=== PATIENT | female | born 2000 | race Caucasian/White ===

== ENCOUNTER 2019-05-09 21:07 | Inpatient (IN) ==
[2019-05-09] MEDS ORDERED: G.I. COCKTAIL PO ONE (21:31)
[2019-05-09 21:36] LABS: URINE SOURCE CLEAN CATCH
[2019-05-09 21:42] LABS: BASO# 0.03 X1000 (0.0-0.2); BASO% 0.4 % (0.0-0.8); BILIRUBIN URINE NEGATIVE (NEGATIVE); BLOOD URINE NEGATIVE (NEGATIVE); COLOR YELLOW; EOS% 1.4 % (0.0-10.0); GLUCOSE URINE NEGATIVE (NEGATIVE); HEMATOCRIT 41.4 % (37.0-47.0); HEMOGLOBIN 13.3 g/dL (12.0-16.0); IMM GRAN# 0.01 X1000 (0.0-0.04); IMM GRAN% 0.1 % (0.0-0.5); KETONE URINE NEGATIVE (NEGATIVE); LEUKOCYTES URINE NEGATIVE (NEGATIVE); LYMPH# 2.28 X1000 (1.2-3.4); LYMPH% 31.3 % (20.5-51.1); MCH 27.3 PG (27-31); MCHC 32.1 g/dL (33-37); MCV 84.8 FL (81-99); MONO# 0.71 X1000 (0.11-0.59); MONO% 9.8 % (1.7-9.3); MPV 9.4 FL (7.4-10.4); NEUT# 4.15 X1000 (1.4-6.5); NITRITE URINE NEGATIVE (NEGATIVE); PLT 432 X1000 (130-400); PROTEIN URINE TRACE mg/dL (NEGATIVE); RBC 4.88 XMIL (4.2-5.4); RDW 13.7 % (11.5-14.5); SP GRAVITY URINE 1.024; TURBIDITY URINE HAZY (CLEAR); UROBILINOGEN URINE NORMAL (NORMAL); WBC 7.28 X1000 (4.8-10.8)
[2019-05-09 21:54] LABS: UR EPITHELIAL CELLS >10 /HPF (<10); URINE BACTERIA 2+ /HPF; URINE RBC <10 /HPF (<10); URINE WBC <10 /HPF (<10); URINE YEAST NONE SEEN
[2019-05-09 21:55] LABS: URINE CASTS NONE SEEN; URINE CRYSTALS NONE SEEN
[2019-05-09 22:05] LABS: AGAP 14; ALBUMIN 4.5 g/dL (3.5-5.0); ALKALINE PHOSPHATASE 178 U/L (32-104); BUN 11 mg/dL (8-22); CALCIUM 9.2 mg/dL (8.8-10.2); CHLORIDE 102 mmol/L (98-107); COSMO 277; CREATININE 0.7 mg/dL (0.5-0.9); ESTIMATED GFR > 60; GLUCOSE 100 mg/dL (70-104); GOT 307 U/L (10-30); GPT 485 U/L (10-36); LIPASE 1272 U/L (13-60); POTASSIUM 3.4 mmol/L (3.5-5.1); SODIUM 139 mmol/L (136-145); TCO2 22 mmol/L (25-35); TOTAL PROTEIN 8.6 g/dL (6.3-8.3)
--- NOTE | 2019-05-09 22:09 | Diag Imaging Result Doc PS360 ---
EXAM: ABDOMEN FLAT/UPRIGHT HISTORY: abd pain TECHNIQUE: Two views COMPARISON: None. FINDINGS: No free air beneath the diaphragm. The liver is mildly prominent. No bowel obstruction. No foreign body. No abnormal calcifications. IMPRESSION: Mildly prominent liver Electronically signed by Ryan Douglass 05/09/2019 10:07 PM
[2019-05-09] MEDS ORDERED: ZOFRAN IV ONE (23:35)
[2019-05-09] MEDS ORDERED: MORPHINE IV ONE (23:35)
[2019-05-09] MEDS ORDERED: NS 1,000 ML IV ONE (23:35)
--- NOTE | 2019-05-09 23:39 | PROVIDER DOCUMENTATION ---
This chart was entered by Juanis Cohen Scribe, acting as scribe for Ashley Ortiz CRNP. HPI-General Adult - General Chief Complaint: Abdominal Pain Stated Complaint: BACK/STOMACH PAIN Time Seen by Provider: 05/09/19 21:18 Source: patient Allergies/Adverse Reactions: Patient Allergies Allergy/AdvReac Type Severity Reaction Status Date / Time No Known Allergies Allergy Verified 05/09/19 21:33 Home Medications: Home Medication List Medication Instructions Recorded Confirmed Last Taken Type Sertraline HCl 50 mg PO DAILY 05/09/19 05/09/19 Unknown History - History of Present Illness -Gen Adult Nature of Presenting Problems: pt is a 18 yr old female presenting with 2 day complaint of epigastric pain radiating to back, nausea and vomiting, pt denies chest pain or shortness of breath. Location of Pain/Injury: reports: abdomen Pain Radiation: reports: back Quality of Pain: reports: cramping, sharp Severity: reports: moderate Onset/Duration: reports: 2 days ago Timing: reports: still present Context/Activities at Onset: reports: light activity Modifying Factors: improves with: breathing (worsens), eating (worsens) Associated Symptoms: reports: nausea, vomiting. denies: cough, diarrhea, dizziness, fever/chills, genitourinary problems, shortness of breath Similar Symptoms Previously?: No Recently seen or treated by another doctor?: No Review of Systems - Adult - REVIEW OF SYSTEMS - ADULT Constitutional: denies: chills, fever Eyes: reports: no symptoms reported Ears, Nose, Mouth & Throat: reports: no symptoms reported Cardiovascular: denies: chest pain, palpitations Respiratory: denies: cough, shortness of breath Gastrointestinal: reports: abdominal pain, nausea, vomiting. denies: diarrhea Genitourinary: denies: dysuria, frequency, flank pain Musculoskeletal: reports: back pain. denies: joint pain Integumentary: reports: no symptoms reported Neurological: denies: dizziness/vertigo, headache/migraines Psychiatric: reports: no symptoms reported Endocrine: reports: no symptoms reported Hematologic/Lymphatic: reports: no symptoms reported Allergic/Immunologic: reports: no symptoms reported All Other Systems: Reviewed and Negative Past History - Adult - PAST MEDICAL HISTORY-ADULT Review of Records: reports: Old Records Reviewed, Nursing Assessment Review, Medications Reviewed, Social history reviewed & non-contributory. Major Childhood Illnesses: reports: denies history Cardiovascular: reports: denies history Respiratory: reports: denies history Gastrointestinal: reports: denies history Obstetrical/Gynecological: reports: denies history Genitourinary: reports: denies history Musculoskeletal: reports: denies history Neurological: reports: denies history Endocrine/Immune: reports: denies history Other Conditions: reports: denies history - IMMUNIZATION STATUS Childhood Immunizations: See Nurse Assessment Flu Vaccine: See Nurse Assessment - FAMILY HISTORY Family History: reviewed, not pertinent - SOCIAL HISTORY Smoking: cigarettes, less than 1 pack/day Provider spent 3-5 mins advising pt. on dangers of tobacco.: Discussed manners to quit use, and f/u contacts for add'l counseling. Substance Use: denies Living Situation: family Physical Exam-General - PHYSICAL EXAM-ADULT Initial Vital Signs Reviewed: Yes - CONSTITUTIONAL General Appearance: appears well, alert, no apparent distress, obese - EYES Eyes: PERRL/EOMI - HEAD, EARS, NOSE, MOUTH & THROAT HENMT: normocephalic/atraumatic, moist mucous membranes - NECK Neck: non-tender, full range of motion, supple, normal inspection - RESPIRATORY Respiratory: chest non-tender, lungs clear, normal breath sounds, no pleuratic chest pain, no respiratory distress, no accessory muscle use - CARDIOVASCULAR Cardiovascular: normal peripheral pulses, regular rate, rhythm - GASTROINTESTINAL (ABDOMEN) Abdominal Exam: normal bowel sounds, soft, tenderness (epigastric tenderness, mild) - LYMPHATIC Lymphatic: no adenopathy - MUSCULOSKELETAL Back Exam: normal inspection Extremity: normal range of motion, non-tender, normal gait, normal inspection - SKIN Integumentary: normal color, normal turgor, warm/dry - NEUROLOGIC Neurologic: grossly normal - PSYCHIATRIC Psych/Mental Status: normal mood/affect Progress - PLAN OF CARE/RESULTS Progress/Plan/Lab Results: Vital Signs - 8 hr 05/09/19 21:10 Temperature 98.2 F Pulse Rate 87 Respiratory Rate 18 Blood Pressure 112/76 O2 Sat by Pulse Oximetry 97 Bedside Urine ED: Urine Bedside Start: 05/09/19 21:14 Freq: ORDERED Status: Active Protocol: Activity Type Activity Date Activity User E-Sign Co-Sign Detail Recorded Client Recorded Date Recorded By Document 05/09/19 21:32 [id number] 05/09/19 21:32 [id number] 05/09/19 21:32 Point of Care [Bedside Point of Care] -Lot # [id number] - Results Negative -Control Line Visible? Yes Laboratory Results - last 24 hr 05/09/19 21:30 Urine Source CLEAN CATCH Orders Category Date Time Status ED: Urine Bedside ORDERED Care 05/09/19 21:14 Active NPO Diet 05/09/19 21:14 Active flat [ABDOMEN FLAT/UPRIGHT] [RAD] Stat Exams 05/09/19 21:31 Ordered CBC WITH DIFF [HEME] Stat Lab 05/09/19 21:30 Results COMPREHENSIVE METABOLIC PANEL [CHEM] Stat Lab 05/09/19 21:30 Received LIPASE [CHEM] Stat Lab 05/09/19 21:30 Received UA [URINALYSIS W/POSS RFLX CULT] [URINALYSIS] Stat Lab 05/09/19 21:30 Results Lido/Reynoso Alk/Al&mg Hydrox [G.i. Cocktail] Med 05/09/19 21:31 Discontinued 30 ml PO NOW ONE Abd Pain/OB <20 weeks Stat Oth 05/09/19 21:14 Ordered Result Diagrams: 05/09/19 21:30 05/09/19 21:30 - REASSESSMENT Reassessment #1 Time Reassessed: 23:38 (reviewed results and need for admission with pt, agrees with plan) - XRAY 1 XRAY Study: Abdomen Impression: See EMR Report (EXAM: ABDOMEN FLAT/UPRIGHT HISTORY: abd pain TECHNIQUE: Two views COMPARISON: None. FINDINGS: No free air beneath the diaphragm. The liver is mildly prominent. No bowel obstruction. No foreign body. No abnormal calcifications. IMPRESSION: Mildly prominent liver Electronically signed by Ryan Douglass 05/09/2019 10:07 PM) - CT/MRI 1 CT Study: Abdomen, Pelvis Impression: See EMR Report (acute pancreatitis. No abnormal fluid collection identified) - CONSULTS/PCP/HOSPITALIST Notification #1 *Consult/PCP/Hospitalist*: Dr Velazquez Time Discussed: 23:37 Consult Disposition: Admit Departure - Departure Date of Disposition Decision: 05/09/19 Time of Disposition Decision: 23:39 DIAGNOSIS: Acute pancreatitis Qualifiers: Pancreatitis type: unspecified pancreatitis type Acute pancreatitis complication: unspecified Qualified Code(s): K85.90 - Acute pancreatitis without necrosis or infection, unspecified Disposition: ADMITTED INPATIENT 09 Certified Medical Emergency: Emergent Condition: Stable Referrals and Follow-Ups: None,PCP [Primary Care Provider] - - Critical Care Note This patient required my direct & personal management of CC.: No Attestation - Physician/ ALEK Attestation Patient care was provided by Advanced Practice Provider:: Yes Advanced Practice Provider:: Ashley Ortiz Advanced Practice Provider documentation review:: The Mid-level provider documentation, treatment plan and medical decision making was reviewed by the physician who agrees with all treatment and medical decision making by the MLP. The physician spent face to face time with patient:: No Advanced Practice Provider documentation review:: Supervising physician onsite and consulted in the evaluation and care of this patient. The physician did not have a face to face encounter with the patient. This chart was documented by the indicated scribe, (Juanis Cohen, Malik) and accurately reflects the services I performed and decisions made by me, Ashley Ortiz, MAXIMINO, as attested by the provider's signature.
[2019-05-10] MEDS: DILAUDID IV PRN ×5 (04:14→22:23)
[2019-05-10] MEDS ORDERED: ZOFRAN IV PRN (06:57)
[2019-05-10] MEDS: NS 1,000 ML IV SCH ×3 (07:16→22:24)
--- NOTE | 2019-05-10 07:38 | Diag Imaging Result Doc PS360 ---
EXAM: CT ABD/PELVIS W/IV CONT ONLY - 05/09/2019 HISTORY: abd pain, r/o pancreatitis TECHNIQUE: CT abdomen/pelvis with intravenous contrast COMPARISON: 05/09/2019 abdominal radiographs FINDINGS: The visualized lung bases are clear except for mild dependent atelectasis. There are no substantial abnormalities of the liver, spleen, or adrenal glands identified. There are mild peripancreatic inflammatory changes which are most conspicuous about the pancreatic tail, compatible with acute pancreatitis. There is no evidence of pancreatic necrosis. There is no evidence of pseudocyst. There are no calcified gallstones or pericholecystic inflammation identified. The gallbladder crooks are possibly slightly thickened. The bilateral kidneys enhance homogeneously. There is no hydronephrosis. There are no substantially enlarged lymph nodes identified. There is no evidence of bowel obstruction. The appendix is unremarkable. There is no substantial bowel wall thickening identified. There is no free air, substantial free peritoneal fluid, or abscess identified. Images of pelvis show no discrete mass or abnormal fluid collection. IMPRESSION: Acute pancreatitis. No evidence of pancreatic necrosis or pseudocyst. Possible slightly thickened gallbladder crooks. No calcified gallstones. No pericholecystic inflammation. The on-call radiologist provided preliminary results at 11:25 PM on 05/09/2019. This exam was performed using automated exposure control, adjustment of mA or kV according to patient size, and/or use of iterative reconstruction technique. Electronically signed by Dandy Hunt 05/10/2019 7:36 AM
[2019-05-10 08:09] LABS: HEMATOCRIT 33.1 % (37.0-47.0); HEMOGLOBIN 10.6 g/dL (12.0-16.0); MCH 27.5 PG (27-31); MCV 85.8 FL (81-99); MPV 8.8 FL (7.4-10.4); RBC 3.86 XMIL (4.2-5.4); RDW 13.4 % (11.5-14.5); WBC 6.05 X1000 (4.8-10.8)
[2019-05-10 08:20] LABS: AGAP 10; ALBUMIN 3.8 g/dL (3.5-5.0); ALKALINE PHOSPHATASE 133 U/L (32-104); BUN 10 mg/dL (8-22); CALCIUM 8.5 mg/dL (8.8-10.2); CHLORIDE 106 mmol/L (98-107); CHOLESTEROL 152 mg/dL (0-200); COSMO 279; CREATININE 0.6 mg/dL (0.5-0.9); ESTIMATED GFR > 60; GLUCOSE 79 mg/dL (70-104); GOT 135 U/L (10-30); GPT 307 U/L (10-36); HDL 26 mg/dL (45-65); LDL 94 mg/dL; LIPASE 275 U/L (13-60); POTASSIUM 3.7 mmol/L (3.5-5.1); SODIUM 141 mmol/L (136-145); TCO2 25 mmol/L (25-35); TOTAL PROTEIN 6.9 g/dL (6.3-8.3); TRIGLYCERIDES 158 mg/dL (35-135); VLDL 32 mg/dL
[2019-05-10] MEDS: ZOSYN 3.375 GM in NS 50 ML IV SCH ×3 (08:57→20:19)
--- NOTE | 2019-05-10 11:03 | HISTORY AND PHYSICAL ---
CHIEF COMPLAINT: Abdominal pain. HISTORY OF PRESENT ILLNESS: The patient is a 18-year-old female who presented to the emergency department, and notes she has had a 3 to 4-day history of burning and throbbing in her abdomen that developed into increased nausea and increased pain. Denies any fevers or chills. Denied any hematemesis, melena, hematochezia. Denied any other sick contacts. Denied any diarrhea or constipation. ALLERGIES: No known drug allergies. MEDICATIONS: Zoloft 50. PAST MEDICAL HISTORY: Significant only for depression. FAMILY HISTORY: Noncontributory. SOCIAL HISTORY: The patient does admit to smoking, typically less than a pack a day. She denies any illicit substance use. Denies any alcohol use. REVIEW OF SYSTEMS: As noted above. Denies fevers, chills, cough, congestion. Does have abdominal pain, nausea, vomiting. Denies dysuria, frequency, urgency. Denies swelling in her lower extremities. Denies headaches, blurred vision, change in her vision. PHYSICAL EXAMINATION: VITAL SIGNS: Reviewed. Temp 98 degrees, pulse 87, respiratory rate 18, BP 112/76. GENERAL: The patient is awake, alert. She is in no current respiratory distress. HEENT: Normocephalic. NECK: Supple. CARDIOVASCULAR: Regular rate. No murmurs. CHEST: Clear. ABDOMEN: Soft. Tender in the epigastric region. Positive bowel sounds. No masses. No hepatosplenomegaly. No rebound. No guarding. EXTREMITIES: Moves all extremities. No edema. NEUROLOGIC: No focal neurological changes. SKIN: Warm, dry. No rashes. ASSESSMENT: 1. Acute hepatitis of undetermined origin. Her AST and ALT both are elevated. 2. Acute pancreatitis. 3. Nausea, vomiting. 4. Slightly thickened gallbladder wall, but no stones. PLAN: We are going to admit the patient to the hospital, n.p.o. except ice chips, and will follow. cc: Jose Melgar MD
[2019-05-11] MEDS: ZOSYN 3.375 GM in NS 50 ML IV SCH ×4 (01:46→19:42)
[2019-05-11] MEDS: DILAUDID IV PRN ×4 (03:29→22:05)
[2019-05-11 09:33] LABS: AGAP 11; ALBUMIN 3.5 g/dL (3.5-5.0); ALKALINE PHOSPHATASE 106 U/L (32-104); AMYLASE 59 U/L (20-200); BUN 7 mg/dL (8-22); CALCIUM 8.5 mg/dL (8.8-10.2); CHLORIDE 103 mmol/L (98-107); COSMO 271; CREATININE 0.7 mg/dL (0.5-0.9); ESTIMATED GFR > 60; GLUCOSE 81 mg/dL (70-104); GOT 38 U/L (10-30); GPT 169 U/L (10-36); LIPASE 38 U/L (13-60); POTASSIUM 3.5 mmol/L (3.5-5.1); SODIUM 137 mmol/L (136-145); TCO2 23 mmol/L (25-35); TOTAL PROTEIN 6.7 g/dL (6.3-8.3)
[2019-05-11] MEDS: NS 1,000 ML IV SCH (12:20)
[2019-05-11 19:44] LABS: HEMATOCRIT 32.7 % (37.0-47.0); HEMOGLOBIN 10.2 g/dL (12.0-16.0); MCH 27.3 PG (27-31); MCHC 31.2 g/dL (33-37); MCV 87.7 FL (81-99); MPV 10.7 FL (7.4-10.4); RBC 3.73 XMIL (4.2-5.4); RDW 13.7 % (11.5-14.5); WBC 7.98 X1000 (4.8-10.8)
[2019-05-12] MEDS: ZOSYN 3.375 GM in NS 50 ML IV SCH ×2 (01:12→09:10)
[2019-05-12] MEDS: DILAUDID IV PRN ×3 (02:27→10:12)
[2019-05-12 05:56] VITALS: BP 129/75
[2019-05-12] MEDS ORDERED: PNEUMOVAX 23 IM ONE (08:00)
--- NOTE | 2019-05-13 14:59 | DISCHARGE SUMMARY ---
ADMISSION DATE: 05/10/2019 DISCHARGE DATE: 05/12/2019 DISCHARGE DIAGNOSES: 1. Acute pancreatitis, resolved. Lipase initial 1272, currently normal. 2. Acute hepatitis. AST and ALT both have improved. 3. Nausea and vomiting, resolved. CONSULTATIONS: None. PROCEDURES: None. BRIEF HOSPITAL COURSE: The patient is a 18-year-old female who presented to the hospital, diagnosed with acute hepatitis and acute pancreatitis. Thankfully, all of her symptoms improved. Her labs also improved. On discharge, she was able to eat a regular diet without any difficulty, although she still is mildly nauseated. She denies drinking. Her gallbladder appears to be normal. Her triglycerides also are normal. DISPOSITION: Discussed with patient to avoid all alcohol and alcohol-containing products. She needs outpatient followup with her primary care. Continue a GI soft diet for the next few days and advance as tolerated. TIME SPENT: Greater than 30 minutes were spent in total care. cc: Jose Melgar MD
== END 2019-05-12 13:30 | disposition home or self-care (01) | DRG 441 ==
LOC: P.MEDSURG 21:07 → P.ED 21:07 → OBSVTOIN 05-10 00:18
PROVIDERS: ATTEND Family Medicine